=== PATIENT | male | born 1980 | race Caucasian/White ===

== ENCOUNTER 2016-07-06 21:31 | Emergency (ER) | payer MEDICAID ==
[~2016-07-06] VITALS: Ht 177.8 cm; Wt 83.5 kg
[~2016-07-06 21:31] MED LIST: MAG-19 PO; OMEP20CA9 PO; ONDA4TAB35 PO
[2016-07-06 21:42] VITALS: Ht 177.8 cm; Wt 83.5 kg
--- NOTE | 2016-07-07 01:29 | ERD ---
ER Documentation Chief Complaint Date/Time DATE: 07/07/16 TIME: 01:26 Chief Complaint Itching and rash in the abdominal area, patient's complaining of upper back pain and on and off chest pain HPI 35-year-old male presents to emergency department for multiple complaints. Patient is complaining of itching and rash in the abdominal area for the last 2 days. Patient's rash has resolved, patient did not take any medications up with rash. Patient also is complaining of upper back pain, lower back pain, left- sided chest pain, on and off for the last 2 days. Patient described the pain as sharp pain, 6/10 scale, worse upon taking a deep breath and movement. Patient did not take any medications to help with symptoms. ROS All systems reviewed and are negative except as per history of present illness. Medications Home Meds Active Scripts Ondansetron Hcl* (Zofran* ODT) 4 mg -ODT Tab.disper, 4 MG PO Q8 Y for NAUSEA AND /OR VOMITING, #30 TAB Prov:CHINMAY GOMEZ NP 11/19/15 Omeprazole* (Prilosec*) 20 Mg Capsule.dr, 20 MG PO DAILY, #30 CAP Prov:CHINMAY GOMEZ NP 11/19/15 Magaldrate/Simethicone* (Mylanta*) 355 Ml Susp, 30 ML PO QID Y for GASTROINTESTINAL UPSET, #1 BOTTLE Prov:CHINMAY GOMEZ NP 11/19/15 Reported Medications [none] Unknown Strength No Conflict Check 11/19/15 Allergies Allergies: Coded Allergies: No Known Drug Allergies (Verified Allergy, Unknown, 11/19/15) PMhx/Soc Medical and Surgical Hx: pt denies Medical Hx, pt denies Surgical Hx History of Surgery: No Anesthesia Reaction: No Hx Neurological Disorder: No Hx Respiratory Disorders: No Hx Cardiac Disorders: No Hx Psychiatric Problems: No Hx Miscellaneous Medical Probl: No Hx Alcohol Use: Yes Hx Substance Use: No Hx Tobacco Use: No Smoking Status: Never smoker FmHx Family History: No coronary disease, No diabetes, No other Physical Exam Vitals Vital Signs Date Time Temp Pulse Resp B/P Pulse Ox O2 Delivery O2 Flow Rate FiO2 07/06/16 21:42 97.5 88 16 143/87 100 Physical Exam GENERAL: The patient is well developed and appropriate for usual state of health, in no apparent distress. CHEST: Clear to auscultation bilaterally. There are no rales, wheezes or rhonchi. Left-sided chest tenderness on palpation. HEART: Regular rate and rhythm. No murmurs, clicks, rubs or gallops. No S3 or S4. ABDOMEN: Soft, nontender and nondistended. Good bowel sounds. No rebound or guarding. No gross peritonitis. No gross organomegaly or masses. No Cruz sign or McBurney point tenderness. BACK: No midline or flank tenderness. Noted muscle spasms in the upper and lower area of the thoracic spine. EXTREMITIES: Equal pulses bilaterally. There is no peripheral clubbing, cyanosis or edema. No focal swelling or erythema. Full range of motion. Grossly neurovascularly intact. NEURO: Alert and oriented. Cranial nerves 2-12 intact. Motor strength in all 4 extremities with 5/5 strength. Sensation grossly intact. Normal speech and gait. SKIN: There is no apparent rash or petechia. The skin is warm and dry. HEMATOLOGIC AND LYMPHATIC: There is no evidence of excessive bruising or lymphedema. No gross cervical, axillary, or inguinal lymphadenopathy. Result Diagram: 07/07/16 0124 07/07/16 0124 Results 24 hrs Laboratory Tests Test 07/07/16 01:24 Alanine Aminotransferase (ALT/SGPT) 47IU/L Albumin 4.4g/dl Albumin/Globulin Ratio 1.25 Alkaline Phosphatase 82IU/L Anion Gap 19 Aspartate Amino Transf (AST/SGOT) 36IU/L Basophils # 0.010^3/ul Basophils % 0.6% Blood Urea Nitrogen 16mg/dl Calcium Level 9.4mg/dl Carbon Dioxide Level 29mmol/L Chloride Level 101mmol/L Creatinine 1.20mg/dl Direct Bilirubin 0.00mg/dl Eosinophils # 0.210^3/ul Eosinophils % 2.4% Globulin 3.50g/dl Glucose Level 100mg/dl Hematocrit 44.4% Hemoglobin 15.3g/dl Indirect Bilirubin 0.3mg/dl Lymphocytes # 2.810^3/ul Lymphocytes % 45.7% Mean Corpuscular Hemoglobin 31.6pg Mean Corpuscular Hemoglobin Concent 34.5g/dl Mean Corpuscular Volume 91.7fl Mean Platelet Volume 9.2fl Monocytes # 0.510^3/ul Monocytes % 8.1% Neutrophils # 2.710^3/ul Neutrophils % 43.2% Nucleated Red Blood Cells # 0.010^3/ul Nucleated Red Blood Cells % 0.0/100WBC Platelet Count 03240^3/UL Potassium Level 4.6mmol/L Red Blood Count 4.8410^6/ul Red Cell Distribution Width 11.8% Sodium Level 144mmol/L Total Bilirubin 0.3mg/dl Total Protein 7.9g/dl Troponin I < 0.012ng/ml White Blood Count 6.210^3/ul EKG was done, read by me and is normal sinus rhythm at a rate of 68, normal axis , there is no ST changes or changes in the EKG that indicates any cardiac emergencies at this time. Patient's EKG was also reviewed by Dr. Zhang. Impression: no acute findings on EKG PROCEDURE: XR Chest. CLINICAL INDICATION: Chest and upper back pain. TECHNIQUE: Single frontal view of the chest was obtained COMPARISON: None FINDINGS: The heart and mediastinum are within normal limits. The lungs are clear. There is no pleural effusion or pneumothorax. IMPRESSION: No acute disease. RPTAT: [facility] Physician Navjot Date Time Electronically viewed and signed by Physician Navjot on 07/07/2016 02:02 RS/ CC: CHINMAY GOMEZ ELECTROFORMER Procedures/MDM Medical Decision Making: Patient's pain is most likely consistent with a muscle spasms. There is no suspicion for neurovascular compromise. Patient has intact sensation and circulation of the distal extremities. There is low suspicion for septic arthritis. Patient does not have any fever. Radiology exams of the spine indicated at this time. There is low suspicion for cardiopulmonary emergencies at this time. Patient has low risk factors. EKG is normal, there is no changes in the EKG that indicates cardiac emergencies. Chest X-ray does not show cardiopulmonary emergencies at this time. There is low suspicion for aortic aneurysm, myocardial infarction, pneumothorax, pleural effusion, pulmonary embolism, or any other cardiopulmonary emergencies at this time. Cardiac markers are normal. Patient's rash can be allergic reaction, nonspecific at this time, no visualized rash at this time, no symptoms of anaphylactic shock. Disposition: Home. Patient is given prescription for ibuprofen for pain and Flexeril for muscle spasms, Benadryl for itching. Patient was advised to avoid heavy lifting. Patient was advised that if symptoms are worse, numbness, tingling, uncontrolled chest pain, shortness of breath high fever, unable to move joint, worsening symptoms, to return to emergency department immediately. Otherwise, patient is advised to follow up with the primary care doctor in 5-7 days for reevaluation of symptoms. Departure Diagnosis: Primary Impression: Chest wall pain Additional Impressions: Back pain Back pain location: thoracic back pain Chronicity: acute Back pain laterality: bilateral Qualified Code: M54.6 - Acute bilateral thoracic back pain Itching Condition: Stable Patient Instructions: Back Pain (Acute Or Chronic), Chest Wall Pain, Costochondritis, Self-Care for Skin Rashes Additional Instructions: Patient is given prescription for ibuprofen for pain and Flexeril for muscle spasms, Benadryl for itching. Patient was advised to avoid heavy lifting. Patient was advised that if symptoms are worse, numbness, tingling, uncontrolled chest pain, shortness of breath high fever, unable to move joint, worsening symptoms, to return to emergency department immediately. Otherwise, patient is advised to follow up with the primary care doctor in 5-7 days for reevaluation of symptoms. CHINMAY GOMEZ NP Jul 07, 2016 01:28
[2016-07-07 01:45] LABS: ALBUMIN 4.4 g/dl (3.3-4.9); CHLORIDE 101 mmol/L (97-110)
[2016-07-07 01:46] LABS: POTASSIUM 4.6 mmol/L (3.5-5.1); SODIUM 144 mmol/L (135-144)
[2016-07-07 01:48] LABS: BILIRUBIN,INDIRECT 0.3 mg/dl (0-1.1); BILIRUBIN,TOTAL 0.3 mg/dl (0.2-1.3)
[2016-07-07 01:49] LABS: ALANINE AMINOTRANSFERASE 47 IU/L (13-69); ALBUMIN/GLOBULIN RATIO 1.25; ALKALINE PHOSPHATASE 82 IU/L (42-121); ANION GAP 19 (8-16); ASPARTATE AMINO TRANSFERASE 36 IU/L (15-46); BLOOD UREA NITROGEN 16 mg/dl (7-20); CALCIUM 9.4 mg/dl (8.4-10.2); CARBON DIOXIDE 29 mmol/L (21-31); GLUCOSE 100 mg/dl (70-220); TOTAL PROTEIN 7.9 g/dl (6.1-8.1)
--- NOTE | 2016-07-07 02:03 | RADRPT ---
PROCEDURE: XR Chest. CLINICAL INDICATION: Chest and upper back pain. TECHNIQUE: Single frontal view of the chest was obtained COMPARISON: None FINDINGS: The heart and mediastinum are within normal limits. The lungs are clear. There is no pleural effusion or pneumothorax. IMPRESSION: No acute disease. RPTAT: [facility] Physician Navjot Date Time Electronically viewed and signed by Physician Navjot on 07/07/2016 02:02 RS/
[2016-07-07 02:07] LABS: TROPONIN-I < 0.012 ng/ml (0.00-0.12)
[2016-07-07 02:15] LABS: BASOPHILS % 0.6 % (0.0-2.0); EOSINOPHILS # 0.2 10^3/ul (0.0-0.5); EOSINOPHILS % 2.4 % (0.0-7.0); HEMATOCRIT 44.4 % (42.0-52.0); HEMOGLOBIN 15.3 g/dl (14.0-18.0); LYMPHOCYTES # 2.8 10^3/ul (0.8-2.9); LYMPHOCYTES % 45.7 % (15.0-51.0); MEAN CORPUSCULAR HEMOGLOBIN 31.6 pg (29.0-33.0); MEAN CORPUSCULAR HGB CONC 34.5 g/dl (32.0-37.0); MEAN CORPUSCULAR VOLUME 91.7 fl (82.0-101.0); MEAN PLATELET VOLUME 9.2 fl (7.4-10.4); MONOCYTE # 0.5 10^3/ul (0.3-0.9); MONOCYTES % 8.1 % (0.0-11.0); NEUTROPHIL # 2.7 10^3/ul (1.6-7.5); NEUTROPHILS % 43.2 % (39.0-77.0); PLATELET COUNT 226 10^3/UL (140-440); RED BLOOD COUNT 4.84 10^6/ul (4.70-6.10); RED CELL DISTRIBUTION WIDTH 11.8 % (11.5-14.5); UNCORRECTED WBC 6.2 10^3/ul (4.8-10.8); WHITE BLOOD COUNT 6.2 10^3/ul (4.8-10.8)
[2016-07-07 02:18] LABS: CONDITION 1
[2016-07-07] MEDS ORDERED: IBUP-1542 PO (02:41)
[2016-07-07] MEDS ORDERED: BEN50 PO (02:41)
[2016-07-07] MEDS ORDERED: CYCL-319 PO (02:41)
[2016-07-07 02:50] VITALS: BP 145/66; PULSE 80; RESP 20; TEMP 98
== END 2016-07-07 03:20 | disposition home or self-care (01) ==
LOC: FTE 21:31
DX: R07.89 Other chest pain (principal); M54.6 Pain in thoracic spine; L29.9 Pruritus, unspecified
CPT/HCPCS: 71010; 80053; 84484; 85025; 93005; Z7502

== ENCOUNTER 2018-05-14 13:57 | Emergency (ER) | payer MEDICAID ==
[~2018-05-14] VITALS: Ht 167.6 cm; Wt 83.2 kg
[~2018-05-14 13:57] MED LIST changes: +BEN50 PO; +CYCL10TA7 PO; +IBUP-1542 PO
[2018-05-14 14:01] VITALS: Ht 167.6 cm; Wt 83.2 kg
[2018-05-14] MEDS ORDERED: IBUPROFEN 800 MG TAB PO ONE (14:30)
[2018-05-14] MEDS ORDERED: ALBU8.5H8 INH (14:54)
[2018-05-14] MEDS ORDERED: IBUP-1542 PO (15:33)
--- NOTE | 2018-05-14 15:35 | ERD ---
ER Documentation Chief Complaint Chief Complaint complains of chest pain Hx of SOB HPI Patient is a 37-year-old male with no medical problems who presents with chest pain. The patient says that for 3 days he has had "pressure in the heart". He also has bilateral eye redness. His pain comes and goes and last about 1 hour. It is a "hard pain" and he says that it hurts worse when he pushes on his chest. He has had no treatment as of yet. Upon review of old medical records this is the patient's third visit to the ER since 2016. He does not remember the name of his primary doctor. ROS All systems reviewed and are negative except as per history of present illness. Medications Home Meds Active Scripts Ibuprofen* (Motrin*) 600 Mg Tab, 600 MG PO Q6H PRN for PAIN AND OR ELEVATED TEMP, #30 TAB Prov:GINNA CAMPO MD 05/14/18 Reported Medications Albuterol Sulfate* (Proair HFA*) 8.5 Gm Hfa.aer.ad, 2 PUFF INH Q4H PRN for WHEEZING AND SOB, #1 INHALER 05/14/18 Discontinued Reported Medications [none] Unknown Strength No Conflict Check 11/19/15 Discontinued Scripts Ibuprofen* (Motrin*) 600 Mg Tab, 600 MG PO Q6H PRN for PAIN AND OR ELEVATED TEMP, #30 TAB Prov:CHINMAY GOMEZ NP 07/07/16 Cyclobenzaprine Hcl* (Cyclobenzaprine Hcl*) 10 Mg Tablet, 10 MG PO TID, #15 TAB Prov:CHINMAY GOMEZ NP 07/07/16 Diphenhydramine Hcl* (Benadryl*) 50 Mg Cap, 50 MG PO Q6H PRN for ITCHING/RASH, #30 CAP Prov:CHINMAY GOMEZ NP 07/07/16 Ondansetron Hcl* (Zofran* ODT) 4 mg -ODT Tab.disper, 4 MG PO Q8 PRN for NAUSEA AND/OR VOMITING, #30 TAB Prov:CHINMAY GOMEZ NP 11/19/15 Omeprazole* (Prilosec*) 20 Mg Capsule.dr, 20 MG PO DAILY, #30 CAP Prov:CHINMAY GOMEZ NP 11/19/15 Magaldrate/Simethicone* (Mylanta*) 355 Ml Susp, 30 ML PO QID PRN for GASTROINTESTINAL UPSET, #1 BOTTLE Prov:CHINMAY GOMEZ ASH Crockett NP 11/19/15 Allergies Allergies: Coded Allergies: No Known Drug Allergies (Verified Allergy, Unknown, 11/19/15) PMhx/Soc History of Surgery: No Anesthesia Reaction: No Hx Neurological Disorder: No Hx Respiratory Disorders: No Hx Cardiac Disorders: No Hx Psychiatric Problems: No Hx Miscellaneous Medical Probl: No Hx Alcohol Use: Yes Hx Substance Use: No Hx Tobacco Use: No FmHx Family History: No coronary disease Physical Exam Vitals Vital Signs Date Temp Pulse Resp B/P (MAP) Pulse Ox O2 O2 Flow FiO2 Time Delivery Rate 05/14/18 99.0 82 17 109/75 98 Room Air 15:49 (86) 05/14/18 97.6 93 20 132/79 99 14:01 (96) Physical Exam Const: No acute distress Head: Atraumatic Eyes: Normal Conjunctiva ENT: Normal External Ears, Nose and Mouth. Neck: Full range of motion. No meningismus. Resp: Clear to auscultation bilaterally Cardio: Regular rate and rhythm, no murmurs, chest wall pain with palpation Abd: Soft, non tender, non distended. Normal bowel sounds Skin: No petechiae or rashes Back: No midline or flank tenderness Ext: No cyanosis, or edema Neur: Awake and alert Psych: Normal Mood and Affect Results 24 hrs Current Medications Medications Dose Sig/[place] Start Time Status Last (Trade) Ordered Route PRN Stop Time Admin Dose Reason Admin Ibuprofen 800 mg ONCE ONCE 05/14/18 DC 05/14/18 (Motrin) PO 14:30 15:02 05/14/18 14:31 Procedures/MDM EKG read by me: Rate/Rhythm: Regular rate and rhythm at a rate of 95 Intervals: Normal Impression: No evidence of ischemia or arrhythmia Chest x-ray negative per radiology. Patient is a 37-year-old male with known cardiac risk factors who presents with chest pain. His chest pain is reproducible with palpation. EKG and chest x-ray were negative. The patient was given ibuprofen. I believe outpatient management is appropriate. At this point I doubt acute coronary syndrome, pneumonia, pneumothorax, pulmonary embolism, or aortic dissection. I believe outpatient management is appropriate but the patient will need close follow-up with his primary doctor within 24-48 hours. He can return sooner for any worsening symptoms. Departure Diagnosis: Primary Impression: Chest pain Chest pain type: unspecified Qualified Codes: R07.9 - Chest pain, unspecified Condition: Fair Patient Instructions: Chest Pain, Uncertain Cause Referrals: Your doctor Additional Instructions: Llame al doctor MAANA y karlo marie DEWEY PARA DENTRO DE 1-2 GARNADO.Dgale a la secretaria que nosotros le instruimos hacer esta dewey.Avise o llame si hernandez condicin se empeora antes de la dewey. Regresa aqui si peor o no mejor. GINNA CAMPO MD May 14, 2018 15:35
[2018-05-14 15:49] VITALS: BP 109/75; PULSE 82; RESP 17
== END 2018-05-14 15:56 | disposition home or self-care (01) ==
LOC: E/R 13:57
DX: R07.9 Chest pain, unspecified (principal)
CPT/HCPCS: 71045; Z7610; 93005